=== PATIENT | male | born 1970 | race Caucasian/White ===

== ENCOUNTER 2019-07-25 13:35 | Emergency (ER) | payer MEDICARE, MEDICAID ==
[~2019-07-25] VITALS: Ht 190.5 cm; Wt 122.9 kg
[2019-07-25] MEDS ORDERED: NS IV 1000 ML 1,000 ML IV SCH (14:15)
[2019-07-25] MEDS ORDERED: KETOROLAC 30 MG/ML VIAL IVP ONE (14:15)
[2019-07-25 14:51] LABS: BASOPHILS % (AUTO) 0 % (0-10); EOSINOPHILS % (AUTO) 0 % (0-10); HEMATOCRIT 45 % (40-54); HEMOGLOBIN 15.2 G/DL (13.3-17.7); LYMPHOCYTES # (AUTO) 1.7 X 10^3 (1.0-4.0); LYMPHOCYTES % (AUTO) 20 % (12-44); MEAN CORPUSCULAR HEMOGLOBIN 31 PG (25-34); MEAN CORPUSCULAR HGB CONC 34 G/DL (32-36); MEAN CORPUSCULAR VOLUME 92 FL (80-99); MEAN PLATELET VOLUME 11.1 FL (7.4-10.4); MONOCYTES # (AUTO) 1.5 X 10^3 (0.0-1.0); MONOCYTES % (AUTO) 18 % (0-12); NEUTROPHILS # (AUTO) 5.4 X 10^3 (1.8-7.8); NEUTROPHILS % (AUTO) 62 % (42-75); PLATELET COUNT 163 10^3/uL (130-400); RED CELL DISTRIBUTION WIDTH 13.3 % (10.0-14.5); WHITE BLOOD COUNT 8.6 10^3/uL (4.3-11.0)
--- NOTE | 2019-07-25 15:08 | ED Abdominal Pain ---
General Chief Complaint: Abdominal/GI Problems Stated Complaint: ABD PAIN Nursing Triage Note: Pt to ED with worker from [facility]. Worker reports pt has been complaining of abdominal and hasn't eaten since Thursday. Worker reports pt has been crying. Pt points to mid abdomen. Worker reports pt has had no fever, vomiting, diarrhea. Pt reports last BM Thursday. Pt unable to give verbal rating of pain. Worker reports pt is not displaying normal disposition for pt. Sepsis Screen: No Definite Risk Source of Information: Patient Exam Limitations: No Limitations History of Present Illness Date Seen by Provider: Jul 25, 2019 Time Seen by Provider: 15:06 Initial Comments To ER complaint by morning babysitter from [place] with reports of abdominal pain with poor appetite since Thursday. No vomiting. Unknown last bowel movement but believed to be on Thursday. Timing/Duration: 1-2 Days Severity/Quality: Moderate Location: Generalized Abdomen Radiation: No Radiation Activities at Onset: None Associated Symptoms: Nausea/Vomiting Allergies and Home Medications Allergies Coded Allergies: No Known Drug Allergies (Unverified , 07/25/19) Patient Home Medication List Home Medication List Reviewed: Yes Review of Systems Review of Systems Constitutional: see HPI EENTM: No Symptoms Reported Respiratory: No Symptoms Reported Cardiovascular: No Symptoms Reported Gastrointestinal: See HPI, Abdominal Pain Genitourinary: No Symptoms Reported Musculoskeletal: no symptoms reported Skin: no symptoms reported Psychiatric/Neurological: No Symptoms Reported Endocrine: No Symptoms Reported Hematologic/Lymphatic: No Symptoms Reported Past Bqvwjcv-Tyxdtg-Gcvuwp Hx Patient Social History Alcohol Use: Denies Use Recreational Drug Use: No 2nd Hand Smoke Exposure: No Recent Foreign Travel: No Contact w/Someone Who Travel: No Recent Infectious Disease Expo: No Recent Hopitalizations: No Seasonal Allergies Seasonal Allergies: Yes Past Medical History Surgeries: No Respiratory: No Cardiac: Yes High Cholesterol, Hypertension Neurological: Yes (epilepsy) Seizure Disorder Genitourinary: No Gastrointestinal: Yes Chronic Constipation Musculoskeletal: No Endocrine: No HEENT: No Cancer: No Psychosocial: Yes (itellectual disability, explosive disorder) Integumentary: No Physical Exam Vital Signs Vital Signs - First Documented 07/25/19 13:40 Temp 36.8 Pulse 84 Resp 14 B/P (MAP) 114/75 (88) Pulse Ox 95 O2 Delivery Room Air Capillary Refill : Less Than 3 Seconds Height/Weight/BMI Height: '" Weight: lbs. oz. kg; 33.00 BMI Method: General Appearance: WD/WN, no apparent distress HEENT: PERRL/EOMI, normal ENT inspection Neck: non-tender, full range of motion Respiratory: no respiratory distress, no accessory muscle use Cardiovascular: regular rate, rhythm, no murmur Gastrointestinal: normal bowel sounds, soft, abnormal bowel sounds (hypoactive), tenderness Extremities: normal range of motion, non-tender Neurologic/Psychiatric: alert, normal mood/affect, oriented x 3 Skin: normal color, warm/dry Progress/Results/Core Measures Results/Orders Lab Results Laboratory Tests Test 07/25/19 14:40 Range/Units White Blood Count 8.6 4.3-11.0 10^3/uL Red Blood Count 4.92 4.35-5.85 10^6/uL Hemoglobin 15.2 13.3-17.7 G/DL Hematocrit 45 40-54 % Mean Corpuscular Volume 92 80-99 FL Mean Corpuscular Hemoglobin 31 25-34 PG Mean Corpuscular Hemoglobin Concent 34 32-36 G/DL Red Cell Distribution Width 13.3 10.0-14.5 % Platelet Count 163 130-400 10^3/uL Mean Platelet Volume 11.1 H 7.4-10.4 FL Neutrophils (%) (Auto) 62 42-75 % Lymphocytes (%) (Auto) 20 12-44 % Monocytes (%) (Auto) 18 H 0-12 % Eosinophils (%) (Auto) 0 0-10 % Basophils (%) (Auto) 0 0-10 % Neutrophils # (Auto) 5.4 1.8-7.8 X 10^3 Lymphocytes # (Auto) 1.7 1.0-4.0 X 10^3 Monocytes # (Auto) 1.5 H 0.0-1.0 X 10^3 Eosinophils # (Auto) 0.0 0.0-0.3 10^3/uL Basophils # (Auto) 0.0 0.0-0.1 10^3/uL Sodium Level 138 135-145 MMOL/L Potassium Level 3.5 L 3.6-5.0 MMOL/L Chloride Level 101 98-107 MMOL/L Carbon Dioxide Level 25 21-32 MMOL/L Anion Gap 12 5-14 MMOL/L Blood Urea Nitrogen 15 7-18 MG/DL Creatinine 0.86 0.60-1.30 MG/DL Estimat Glomerular Filtration Rate > 60 BUN/Creatinine Ratio 17 Glucose Level 92 70-105 MG/DL Calcium Level 8.6 8.5-10.1 MG/DL Corrected Calcium 8.6 8.5-10.1 MG/DL Total Bilirubin 0.4 0.1-1.0 MG/DL Aspartate Amino Transf (AST/SGOT) 133 H 5-34 U/L Alanine Aminotransferase (ALT/SGPT) 125 H 0-55 U/L Alkaline Phosphatase 62 40-136 U/L Total Protein 8.1 6.4-8.2 GM/DL Albumin 4.0 3.2-4.5 GM/DL Lipase 7 L 8-78 U/L My Orders Orders - PLACIDO RASHID APRN Cbc With Automated Diff (07/25/19 14:11) Comprehensive Metabolic Panel (07/25/19 14:11) Ua Culture If Indicated (07/25/19 14:11) Ed Iv/Invasive Line Start (07/25/19 14:11) Ct Abd/Pelvis Wo(Kidney Stone) (07/25/19 14:11) Ns Iv 1000 Ml (Sodium Chloride 0.9%) (07/25/19 14:15) Ketorolac Injection (Toradol Injection) (07/25/19 14:15) Lipase (07/25/19 14:47) Chest Pa/Lat (2 View) (07/25/19 14:47) Vital Signs/I&O 07/25/19 13:40 Temp 36.8 Pulse 84 Resp 14 B/P (MAP) 114/75 (88) Pulse Ox 95 O2 Delivery Room Air Blood Pressure Mean: 88 Diagnostic Imaging Diagonstic Imaging: Xray, CT Plain Films/CT/US/NM/MRI: chest, other Comments NAME: PARVIZ GOMEZ [facility] REC#: [id number] PT STATUS: REG ER : 1970 PHYSICIAN: PLACIDO RASHID APRN ADMIT DATE: 07/25/19/ER Draft Date of Exam:07/25/19 CHEST PA/LAT (2 VIEW) HISTORY: Upper abdominal pain. TECHNIQUE: Two views of the chest. COMPARISON: None FINDINGS: There is airspace opacity in the left lower lobe. No pleural effusion or pneumothorax is seen. The cardiac silhouette is normal in size. The lung volumes are mildly low. IMPRESSION: Airspace opacity in the left lower lobe, concerning for pneumonia in the appropriate clinical setting. Dictated on workstation # [id number] Dict: 07/25/19 1519 Trans: 07/25/19 1525 [id number] Interpreted by: BALAJI POLLACK MD Electronically signed by: NAME: PARVIZ GOMEZ [facility] REC#: [id number] PT STATUS: REG ER : 1970 PHYSICIAN: PLACIDO RASHID DOWEL POINTER ADMIT DATE: 07/25/19/ER Draft Date of Exam:07/25/19 CT ABD/PELVIS WO(KIDNEY STONE) PROCEDURE: CT urinary tract, rule out kidney stone. TECHNIQUE: Multiple contiguous axial images were obtained through the abdomen and pelvis without the use of intravenous contrast. Auto Exposure Controls were utilized during the CT exam to meet ALARA standards for radiation dose reduction. INDICATION: Abdominal pain. COMPARISON: None. FINDINGS: There is dense consolidation in the left lower lobe. The heart is normal in size. There is no pericardial effusion. The liver demonstrates no focal lesions. There is layering density in the gallbladder which may represent sludge. The spleen is mildly prominent measuring 12.9 cm in length. The pancreas is normal. A small splenule is noted. The adrenal glands appear normal. There is a simple appearing cyst in the posterior left kidney measuring 2.8 cm in size. No renal calculi are seen. There is no hydronephrosis. The appendix appears normal. No distended loops of bowel are seen. There is no free fluid or free air seen. No acute osseous abnormality is seen. IMPRESSION: 1. Dense consolidation in the left lower lobe, consistent with pneumonia. 2. Layering density in the gallbladder may represent sludge. No calcified stone is seen. 3. No renal calculi or hydronephrosis. Dictated on workstation # [id number] Dict: 07/25/19 1532 Trans: 07/25/19 1536 [id number] Interpreted by: BALAJI POLLACK MD Electronically signed by: Departure Impression Primary Impression: Pneumonia Qualified Codes: J18.1 - Lobar pneumonia, unspecified organism Disposition: HOME, SELF-CARE Condition: Stable Departure-Patient Inst. Decision time for Depature: 15:43 Referrals: SHALINI LU DO (PCP) Primary Care Physician Patient Instructions: Community-Acquired Pneumonia in Adults Add. Discharge Instructions: 1. Return to ER for any concerns 2. Antibiotics as directed 3. All discharge instructions reviewed with patient and/or family. Voiced understanding. Scripts Levofloxacin (Levaquin) 500 Mg Tablet 500 MG PO DAILY, #5 TAB Prov: PLACIDO RASHID DOWEL POINTER 07/25/19 Copy Copies To 1: SHALINI LU PETER J APRN Jul 25, 2019 15:08
[2019-07-25 15:10] LABS: ALANINE AMINOTRANSFERASE 125 U/L (0-55); ALKALINE PHOSPHATASE 62 U/L (40-136); BILIRUBIN,TOTAL 0.4 MG/DL (0.1-1.0); BUN/CREATININE RATIO 17; CALCIUM 8.6 MG/DL (8.5-10.1); CARBON DIOXIDE 25 MMOL/L (21-32); CHLORIDE 101 MMOL/L (98-107); CREATININE SERUM 0.86 MG/DL (0.60-1.30); GFR ESTIMATED > 60; GLUCOSE 92 MG/DL (70-105); LIPASE 7 U/L (8-78); POTASSIUM 3.5 MMOL/L (3.6-5.0); SODIUM 138 MMOL/L (135-145); TOTAL PROTEIN 8.1 GM/DL (6.4-8.2)
--- NOTE | 2019-07-25 15:25 | Diagnostic Imaging Report ---
HISTORY: Upper abdominal pain. TECHNIQUE: Two views of the chest. COMPARISON: None FINDINGS: There is airspace opacity in the left lower lobe. No pleural effusion or pneumothorax is seen. The cardiac silhouette is normal in size. The lung volumes are mildly low. IMPRESSION: Airspace opacity in the left lower lobe, concerning for pneumonia in the appropriate clinical setting. Dictated by: Dictated on workstation # [id number]
--- NOTE | 2019-07-25 15:37 | Diagnostic Imaging Report ---
PROCEDURE: CT urinary tract, rule out kidney stone. TECHNIQUE: Multiple contiguous axial images were obtained through the abdomen and pelvis without the use of intravenous contrast. Auto Exposure Controls were utilized during the CT exam to meet ALARA standards for radiation dose reduction. INDICATION: Abdominal pain. COMPARISON: None. FINDINGS: There is dense consolidation in the left lower lobe. The heart is normal in size. There is no pericardial effusion. The liver demonstrates no focal lesions. There is layering density in the gallbladder which may represent sludge. The spleen is mildly prominent measuring 12.9 cm in length. The pancreas is normal. A small splenule is noted. The adrenal glands appear normal. There is a simple appearing cyst in the posterior left kidney measuring 2.8 cm in size. No renal calculi are seen. There is no hydronephrosis. The appendix appears normal. No distended loops of bowel are seen. There is no free fluid or free air seen. No acute osseous abnormality is seen. IMPRESSION: 1. Dense consolidation in the left lower lobe, consistent with pneumonia. 2. Layering density in the gallbladder may represent sludge. No calcified stone is seen. 3. No renal calculi or hydronephrosis. Dictated by: Dictated on workstation # [id number]
[2019-07-25] MEDS ORDERED: LEVO500T2 PO (15:44)
[2019-07-25] MEDS ORDERED: cefTRIAXone FOR IV USE 1,000 MG in WATER (STERILE) FOR INJECTION 10 ML IV ONE (15:45)
[2019-07-25 16:47] VITALS: BP 114/75
== END 2019-07-25 16:47 | disposition home or self-care (01) ==
LOC: EDUNIT# 13:35 → ER 13:36
DX: J18.9 Pneumonia, unspecified organism (principal); E78.00 Pure hypercholesterolemia, unspecified; I10 Essential (primary) hypertension; G40.909 Epilepsy, unspecified, not intractable, without status epilepticus; F79 Unspecified intellectual disabilities; F60.3 Borderline personality disorder
CPT/HCPCS: 36415; 71046; 74176; 80053; 83690; 85025; 96361; 96374; 96375

== ENCOUNTER → 2019-08-01 | Outpatient (CLI) | payer MEDICARE, MEDICAID ==
[~2019-08-01] MED LIST: LEVO500T2 PO
--- NOTE | 2019-08-01 10:36 | Diagnostic Imaging Report ---
INDICATION: Check up on pneumonia. TIME OF EXAM: 9:59 AM Correlation is made with prior exam from 07/25/2019. FINDINGS: Heart size is stable. There is some mild residual infiltrate in the left base. However, this does appear to be improved since exam one week earlier. No new infiltrate is identified. The right lung is clear. No effusion or pneumothorax is detected. IMPRESSION: Improving left basilar pneumonia when compared with exam one week earlier. Dictated by: Dictated on workstation # [id number]
== END ==
LOC: RAD 09:43
PROVIDERS: ATTEND Family Medicine
DX: J18.9 Pneumonia, unspecified organism (principal)
CPT/HCPCS: 71046

== ENCOUNTER → 2021-04-18 | Outpatient (CLI) | payer MEDICARE, MEDICAID | LOC: WOUNDCARE 13:12 | PROVIDERS: ATTEND Surgery | DX: C44.319 Basal cell carcinoma of skin of other parts of face (principal) | CPT/HCPCS: 99213 ==

== ENCOUNTER 2021-05-08 05:39 | Outpatient (CLI) | payer MEDICARE, MEDICAID ==
[~2021-05-08] VITALS: Ht 190.5 cm; Wt 124.3 kg
[2021-05-09] MEDS ORDERED: BENZ1TAB6 PO (12:15)
[2021-05-09] MEDS ORDERED: ATOR10TA66 PO (12:15)
[2021-05-09] MEDS ORDERED: DIVA-76 PO (12:15)
[2021-05-09] MEDS ORDERED: LISI10TA25 PO (12:15)
[2021-05-09] MEDS ORDERED: OXCA600T3 PO (18:25)
[2021-05-09] MEDS ORDERED: RISP1TAB94 PO (18:25)
[2021-05-09] MEDS ORDERED: POLY17PO6 PO (18:25)
[2021-05-09] MEDS ORDERED: MULT-974 PO (18:25)
[2021-05-09] MEDS ORDERED: OXCA150T3 PO (18:25)
== END 2021-05-09 18:34 | disposition home or self-care (01) ==
LOC: PREOP 05:39
PROVIDERS: ATTEND Surgery
DX: Z01.818 Encounter for other preprocedural examination (principal)

== ENCOUNTER 2021-05-15 08:13 | Day surgery (SDC) | payer MEDICARE, MEDICAID ==
[2021-05-15] VITALS (10 sets, daily range): BP systolic 115–151; BP diastolic 68–88
[~2021-05-15] VITALS: Ht 190.5 cm; Wt 124.3 kg
[~2021-05-15 08:13] MED LIST changes: +ATOR10TA66 PO; +BENZ1TAB6 PO; +DIVA-76 PO; +LISI10TA25 PO; +MULT-974 PO; +OXCA150T3 PO; +OXCA600T3 PO; +POLY17PO6 PO; +RISP1TAB94 PO
[2021-05-15] MEDS ORDERED: ceFAZolin 2 GM IV Premixed 50 ML IV ONE (08:30)
[2021-05-15] MEDS: LACTATED RINGERS 1,000 ML IV PRN ×2 (09:25→12:44)
--- NOTE | 2021-05-15 11:40 | Progress Note-Pre Operative ---
Pre-Operative Progress Note H&P Reviewed The H&P was reviewed, patient examined and no changes noted. Time Seen by Provider: 11:35 Date H&P Reviewed: May 15, 2021 Time H&P Reviewed: 11:35 Pre-Operative Diagnosis: forehead mass KERRY MELTON DO May 15, 2021 11:40
[2021-05-15] MEDS ORDERED: LIDOCAINE/EPI 1%-1:200,000 (XYLOCAINE) 30 ML VIAL ONE (11:41)
[2021-05-15] MEDS ORDERED: SEVOFLURANE (ULTANE) 15 ML INHAL SOLN ONE ×2 (11:52→12:46)
[2021-05-15] MEDS ORDERED: proPOfol 200 MG/20 ML (DIPRIVAN) VIAL IV ONE (11:52)
[2021-05-15] MEDS ORDERED: LIDOCAINE PF 2% 5 ML (XYLOCAINE) VIAL ONE (11:52)
[2021-05-15] MEDS ORDERED: ONDANSETRON 4 MG/2 ML (SDV) Z0FRAN ONE (11:52)
[2021-05-15] MEDS ORDERED: MIDAZOLAM 2 MG/2 ML (VERSED) VIAL ONE (11:53)
[2021-05-15] MEDS ORDERED: fentaNYL INJ 100 MCG/2 ML AMP ONE (11:53)
[2021-05-15] MEDS ORDERED: PHENYLEPHRINE 100 MCG/ML 10 ML (ANESTHESIA) SYR ONE (12:34)
[2021-05-15] MEDS ORDERED: HYDROmorphone 2 MG/ML VIAL (DILAUDID) IV ONE (13:00)
[2021-05-15] MEDS ORDERED: ONDANSETRON 4 MG/2 ML (SDV) Z0FRAN IVP PRN (13:00)
--- NOTE | 2021-05-15 13:00 | Progress Note-Post Operative ---
Post-Operative Progess Note Surgeon (s)/Shirt Ironer Supervisor (s) Surgeon KERRY MELTON DO Shirt Ironer Supervisor: ANGELIQUE Patel Pre-Operative Diagnosis forehead mass Post-Operative Diagnosis same pending path Procedure & Operative Findings Date of Procedure 05/15/21 Procedure Performed/Findings Excision of forehead mass with advancement flap Anesthesia Type LMA Estimated Blood Loss Estimated blood loss (mL): less than 10ml Specimens/Packing Specimens Removed forehead mass KERRY MELTON DO May 15, 2021 13:00
--- NOTE | 2021-05-15 13:01 | Discharge Inst-Surgical ---
Discharge Inst-Surgical Depart Medication/Instructions New, Converted or Re-Newed RX: Other (use home meds) Patient Instructions Follow up Appt: Make appointment for 1 week. [phone] Instructions: No lifting greater than 20 pounds. No strenuous activity. May shower in 24 hours, no tub bath or soaking. Use incentive spirometer at home as directed. No Smoking Skin/Wound Care: May remove bandages in am. You need to leave the Dermabond on incision it will fall off on it's own. Symptoms to Report: Appetite Changes, Extremity Discoloration, Numbness/Tingling, Swelling Increased, Bleeding Excessive, Eyesight Changes, Pain Increased, Urine Color Change, Constipation(Persistent), Fever over 101 degree F, Pain/Pressure in chest, Urinating Difficulty, Cough Up/Vomit Blood, Heart Beat Irreg/Pounding, Pain/Pressure in jaw, Cramps in feet or legs, Lightheadedness, Pain/Pressure in shoulder, Diarrhea(Persistent), Memory Changes Suddenly, Questions/Concerns, Weight gain consecutive days, Dizziness/Fainting, Nausea/Vomiting, Shortness of Breath, Weight gain over 2 pounds If questions or concerns contact your physician Or seek help at emergency department. Activity Activity as Tolerated: Yes Activity Instructions: Avoid Stress to Incision Diet Discharge Diet: No Restrictions Diet After 24 Hours: Clear Liquid if Nauseous If Any Problems/Questions/Issu: Contact Your Physician, Go to Emergency Room Skin/Wound Care Infection Signs and Symptoms: Increased Redness, Foul Odor of Wound, Increased Drainage, Skin Itchy or Has a Rash, Increased Swelling, Temperature Above 101 F Bathing Instructions: Shower Stitches/Starlight/Dermabond Dis: Care of [place], Care of Stitches Ice Pack: Ice On and Off Site KERRY MELTON DO May 15, 2021 13:01
--- NOTE | 2021-05-15 15:06 | Anesthesia-General Post-Op ---
General Patient Condition Mental Status/LOC: Same as Preop Cardiovascular: Satisfactory Nausea/Vomiting: Absent Respiratory: Satisfactory Pain: Controlled Complications: Absent Post Op Complications Complications None Follow Up Care/Instructions Patient Instructions None needed. Anesthesia/Patient Condition Patient Condition Patient is doing well, no complaints, stable vital signs, no apparent adverse anesthesia problems. No complications reported per nursing. D/C home per [facility] [place] Criteria: Yes ANGELA PHAM CRNA May 15, 2021 15:06
--- NOTE | 2021-05-16 03:53 | OPERATIVE REPORT ---
DATE OF SERVICE: 05/15/2021 PREOPERATIVE DIAGNOSIS: Forehead mass. POSTOPERATIVE DIAGNOSIS: Forehead mass, pending pathology. This most likely is a malignant mass. PROCEDURE: Excision of mass, it measured about 3.2 cm, removed and then an advancement flap was created to close removal. SURGEON: Juan Ramon Maurer DO ROTOR PLATE WASHER: Helio Monreal DO. ANESTHESIA: General as LMA. BLOOD LOSS: Less than 10 mL. FLUIDS: Per anesthesia. POSTOPERATIVE CONDITION: Stable. INDICATION FOR PROCEDURE: The patient is a 50-year-old male who has a mass and ulcerative lesion in the top of his forehead, right in the beginning of the hairline, looked like it was most likely like a squamous cell, possibly basal cell, was bleeding. He needed to get this removed. FINDINGS: This measured about 3.2 cm in long by about 2.6 cm wide and it was removed and sent to pathology with an advancement flap created, almost a Z-plasty. PROCEDURE NOTE: After informed consent was obtained, the patient was brought to the operating room, placed on the table in supine position, shaved his hair to be able to get to this mass and then he was sterilely prepped and draped in normal fashion. Local lidocaine was injected around this area, tried to decide whether a large elliptical incision we better to close this or possibly some type of advancement flap. We would like to do an advancement flap, a kind of Z-plasty advancement flap, first cut out the mass using #15 blade, carried down through the skin into subcutaneous tissue, deepened down to subcutaneous tissue with Bovie electrocautery down and around this, going just outside this mass and then going down to just above the galea, trying not to get down to the cranial bone itself, removed this, passed this off table and then elected to make an incision going laterally and then undermining the tissue and then this one was going from about the 6 o'clock towards the 10 o'clock position and then did another incision going from about the 12 o'clock to the 3 o'clock position, almost like a Z-plasty, undermining this tissue and then advancing these together to do a type of a Z-plasty advancement flap. This advancement flap measured about 5 cm on either side and then brought together with again about 4 cm in the middle, sutured the corners together with 2-0 nylon and then the side and then between this stapled the skin closed, had obtained hemostasis using Bovie electrocautery. At this point, then put some Xeroform gauze and then wrapped his head to protect this. He was then transferred to recovery room in stable condition. Sponge and needle count correct at the end of the case. Job ID: [id number] DocumentID: [id number] Dictated Date: 05/15/2021 20:03:53 Electronic Warfare Specialist Date: 05/16/2021 03:52:54 Dictated By: DO JESSICA SABILLON
== END 2021-05-15 14:40 | disposition home or self-care (01) ==
LOC: SDC 08:13
PROVIDERS: ATTEND Surgery
DX: C44.319 Basal cell carcinoma of skin of other parts of face (principal); I10 Essential (primary) hypertension; E78.5 Hyperlipidemia, unspecified; E66.9 Obesity, unspecified; Z68.34 Body mass index [BMI] 34.0-34.9, adult; Z79.899 Other long term (current) drug therapy
CPT/HCPCS: 87081; 88305

== ENCOUNTER → 2022-01-02 | Outpatient (CLI) | payer MEDICARE, MEDICAID | LOC: WOUNDCARE 09:30 | PROVIDERS: ATTEND Family Medicine | DX: C44.311 Basal cell carcinoma of skin of nose (principal); F71 Moderate intellectual disabilities | CPT/HCPCS: 99213 ==

== ENCOUNTER 2022-01-30 05:43 | Outpatient (CLI) | payer MEDICARE, MEDICAID ==
[~2022-01-30] VITALS: Ht 190.5 cm; Wt 122.7 kg
== END 2022-02-05 16:08 | disposition home or self-care (01) ==
LOC: PREOP 05:43
PROVIDERS: ATTEND Surgery
DX: Z01.818 Encounter for other preprocedural examination (principal)

== ENCOUNTER 2022-02-13 09:39 | Day surgery (SDC) | payer MEDICARE, MEDICAID ==
[~2022-02-13] VITALS: Ht 182.9 cm; Wt 122.7 kg
[2022-02-13] VITALS (7 sets, daily range): BP systolic 127–140; BP diastolic 74–96
[2022-02-13] MEDS ORDERED: TRAM50TA3 PO (09:53)
--- NOTE | 2022-02-13 09:53 | Discharge Inst-Surgical ---
D/C Lap Instructions-KIDO Reconcile Patient Problems Problems Reviewed?: Yes New, Converted, or Re-Newed RX: RX on Chart Follow Up Appt in 2 weeks Activity as tolerated No driving for 24 hours No driving while on pain medications Regular Diet Symptoms to Report: Fever over 101 degree F, Nausea/Vomiting Infection Signs and Symptoms to report: Increased redness, Foul odor of wound, Increased drainage Bathing instructions: May shower Operative Area Clean/Dry; Keep incision clean/dry If any problems/questions: Contact your physician or go to Emergency Room CHICA MENESES APRN Feb 13, 2022 09:53
--- NOTE | 2022-02-13 09:57 | Progress Note-Pre Operative ---
Pre-Operative Progress Note Date of Available H&P: Jan 28, 2022 Date H&P Reviewed: Feb 13, 2022 Time H&P Reviewed: 09:50 History & Physical: H&P Reviewed, Patient Examed, No changes noted Pre-Operative Diagnosis: Bilateral symptomatic nose skin lesions CHICA MENESES APRN Feb 13, 2022 09:57
[2022-02-13] MEDS ORDERED: ACETAMINOPHEN 325 MG TABLET PO PRN (10:00)
[2022-02-13] MEDS ORDERED: morphine INJ 10 MG/ML 1ML (SYR OR VIAL) IVP PRN (10:00)
[2022-02-13] MEDS ORDERED: HYDROcodone/APAP 5 MG/325 MG (LORTAB) TAB PO ONE (10:00)
[2022-02-13] MEDS ORDERED: ONDANSETRON 4 MG/2 ML (SDV) Z0FRAN IVP PRN ×2 (10:00→11:30)
[2022-02-13] MEDS ORDERED: MIDAZOLAM SYRUP (VERSED) 10MG/5ML UDC PO ONE ×2 (10:24→10:30)
[2022-02-13] MEDS ORDERED: ceFAZolin 2 GM IV Premixed 50 ML IV ONE (10:30)
[2022-02-13] MEDS ORDERED: LACTATED RINGERS 1,000 ML IV PRN (10:30)
[2022-02-13] MEDS ORDERED: MIDAZOLAM 2 MG/2 ML (VERSED) VIAL ONE (11:27)
[2022-02-13] MEDS ORDERED: LIDOCAINE PF 2% 5 ML (XYLOCAINE) VIAL ONE (11:27)
[2022-02-13] MEDS ORDERED: KETAMINE 50 MG/5 ML SYRINGE ONE (11:27)
[2022-02-13] MEDS ORDERED: proPOfol 200 MG/20 ML (DIPRIVAN) VIAL IV ONE (11:27)
[2022-02-13] MEDS ORDERED: morphine INJ 10 MG/ML 1ML (SYR OR VIAL) IVP ONE (11:30)
[2022-02-13] MEDS ORDERED: LIDOCAINE/EPI 2% 1:200,00 (XYLOCAINE) 20 ML VIAL ONE (11:56)
[2022-02-13] MEDS ORDERED: MUPIROCIN 2% OINT 22 GM (BACTROBAN) TUBE ONE (12:21)
--- NOTE | 2022-02-13 12:57 | Anesthesia-General Post-Op ---
MAC Patient Condition Mental Status/LOC: Same as Preop Cardiovascular: Satisfactory Nausea/Vomiting: Absent Respiratory: Satisfactory Pain: Controlled Complications: Absent Post Op Complications Complications None Follow Up Care/Instructions Patient Instructions None needed. Anesthesiology Discharge Order Discharge Order Patient is doing well in PACU, ready for return [place] [facility] [place], stable vital signs, no apparent adverse anesthesia problems. No complications reported per nursing. CANDY FUENTES DO Feb 13, 2022 12:57
--- NOTE | 2022-02-13 16:08 | OPERATIVE REPORT ---
DATE OF SERVICE: 02/13/2022 ATTENDING PRIMARY CARE PHYSICIAN: Baldemar Renteria DO PREOPERATIVE DIAGNOSIS: Symptomatic skin lesions, bilateral nares, both approximately 1 cm in size. POSTOPERATIVE DIAGNOSIS: Symptomatic skin lesions, bilateral nares, both approximately 1 cm in size. PROCEDURE: Excision of symptomatic lesions bilateral nares, both approximately 1 cm in size with the excised diameter approximately 1.5 cm in size bilaterally. SURGEON: Brianne Salazar MD. PLANTING SUPERVISOR: Nixon Johnson APRN. ANESTHESIA: Monitored anesthesia care with local. ESTIMATED BLOOD LOSS: Minimal. FINDINGS: Symptomatic skin lesions, bilateral nares, both approximately 1 cm in size. DISPOSITION: The patient tolerated the procedure well. INDICATIONS: The patient is a 51-year-old male who developed raised, hyperkeratotic lesions of bilateral nares in the past few months, which have persisted and grown larger in size. He had a similar type of lesion of the forehead, and this grew larger in size and was excised and consistent with a squamous cell skin cancer. The lesions of the bilateral nares appeared to be similar as well. Both lesions approximately 1 cm in size and are red, irritated and to bleed. DESCRIPTION OF PROCEDURE: The patient was brought to the operating room, laid supine on the table. After adequate IV pain and sedative medications and monitored anesthesia care, the face and nares were prepped and draped in standard surgical fashion. A 1% lidocaine with epinephrine was then used to anesthetize overlying skin to both of the bilateral nares skin lesions. We then proceeded with a systematic excision full thickness skin of the 1 cm lesions encompassing a negative rim with a total excised whitish rim, approximately 1.5 cm in size. Both of the lesions were then closed in an oblique manner using 4-0 Prolene interrupted sutures. Wounds were then cleaned and covered with bacitracin ointment. The patient tolerated the procedure well. We will have him keep the areas clean and dry and to instruct staff for the patient to not pick at the lesions and we will have him follow up in approximately one week to remove the sutures. Job ID: [id number] DocumentID: [id number] Dictated Date: 02/13/2022 12:31:36 Courtroom Reporter Date: 02/13/2022 16:07:36 Dictated By: BRIANNE SALAZAR MD
== END 2022-02-13 13:40 ==
LOC: SDC 09:39
PROVIDERS: ATTEND Surgery
DX: C44.311 Basal cell carcinoma of skin of nose (principal)
CPT/HCPCS: 87081